=== PATIENT | male | born 1945 | race Caucasian/White ===

== ENCOUNTER 2018-03-24 11:41 | Emergency (ER) | payer MEDICARE, MEDICAID ==
[2018-03-24 11:53] VITALS: BP 114/73
[2018-03-24] MEDS ORDERED: METHYLPREDNISOLONE ACETATE INJ 40 MG/1 ML ML INJ ONE (12:42)
[2018-03-24] MEDS ORDERED: BUPIVACAINE HCL 0.75% INJ/PF (7.5 MG/1 ML) 10 ML SDV INJ ONE (12:42)
[2018-03-24] MEDS ORDERED: HYDROCODONE/ACETAMINOPHEN 5-325 MG TABLET PO ONE (13:01)
--- NOTE | 2018-03-24 13:07 | ER Document Report ---
ED Extremity Problem, Lower - General Chief Complaint: Leg Pain Stated Complaint: LEG PAIN Time Seen by Provider: 03/24/18 12:42 Notes: Chief complaint: Right knee pain History of complain:( obtained from----patient) 72 years old male with history of gout presents today with right knee pain since this morning. And having difficulty in walking. No injuries. No fever chills or other constitutional symptoms. Onset: Gradual Duration: Since this morning Severity: Moderate Quality: Sharp Context: Possible gout Exacerbating factor and relieving factors: Bearing weight 10 walking REVIEW OF SYSTEMS: CONSTITUTIONAL : Denies fever, chills, or sweats. Denies recent illness. EENT: Denies eye, ear, throat, or mouth pain or symptoms. Denies nasal or sinus congestion or discharge. Denies throat, tongue, or mouth swelling or difficulty swallowing. CARDIOVASCULAR: Denies chest pain. Denies palpitations or racing or irregular heart beat. Denies ankle edema. RESPIRATORY: Denies cough, cold, or chest congestion. Denies shortness of breath, difficulty breathing, or wheezing. GASTROINTESTINAL: Denies distention. Denies nausea, vomiting, or diarrhea. Denies blood in vomitus, stools, or per rectum. Denies black, tarry stools. Denies constipation. GENITOURINARY: Denies difficulty urinating, painful urination, burning, frequency, blood in urine, or discharge. FEMALE GENITOURINARY: Denies vaginal bleeding, heavy or abnormal periods, irregular periods. Denies vaginal discharge or odor. MUSCULOSKELETAL: Denies back or neck pain or stiffness. Denies joint pain or swelling. SKIN: Denies rash, lesions or sores. HEMATOLOGIC : Denies easy bruising or bleeding. LYMPHATIC: Denies swollen, enlarged glands. NEUROLOGICAL: Denies confusion or altered mental status. Denies passing out or loss of consciousness. Denies dizziness or lightheadedness. Denies headache. Denies weakness or paralysis or loss of use of either side. Denies problems with gait or speech. Denies sensory loss, numbness, or tingling. Denies seizures. PSYCHIATRIC: Denies anxiety or stress. Denies depression, suicidal ideation, or homicidal ideation. ALL OTHER SYSTEMS REVIEWED AND NEGATIVE. PHYSICAL EXAMINATION: GENERAL: Well-appearing, well-nourished and in no acute distress. HEAD: Atraumatic, normocephalic. EYES: Pupils equal round and reactive to light, extraocular movements intact, conjunctiva are normal. ENT: Nares patent, oropharynx clear without exudates. Moist mucous membranes. NECK: Normal range of motion, supple without lymphadenopathy LUNGS: Breath sounds clear to auscultation bilaterally and equal. No wheezes rales or rhonchi. HEART: Regular rate and rhythm without murmurs ABDOMEN: Soft, nontender, nondistended abdomen. No guarding, no rebound. No masses appreciated. Examination of genitals-deferred Musculoskeletal: Right knee shows slight erythema on the lateral side and is warm and tender to touch over the tibial head,. No knee effusion noted. No fluctuant fluids. Able to flex and extend with discomfort. Neurovascular function distally within normal limit. NEUROLOGICAL: Cranial nerves grossly intact. Normal speech, normal gait. Normal sensory, motor exams PSYCH: Normal mood, normal affect. SKIN: Warm, Dry, normal turgor, no rashes or lesions noted. Dictation was performed using [employer] voice recognition software TRAVEL OUTSIDE OF THE [place] IN LAST 30 DAYS: No - HPI Notes: Dictated - Related Data Allergies/Adverse Reactions: Sulfa (Sulfonamide Antibiotics) Allergy (Verified 11/27/15 08:26) Past Medical History - Social History Smoking Status: Never Smoker Chew tobacco use (# tins/day): No Frequency of alcohol use: None Lives with: Family Family History: Reviewed & Not Pertinent Patient has suicidal ideation: No Patient has homicidal ideation: No - Past Medical History Cardiac Medical History: Reports: Hx Hypertension - medicated Denies: Hx Heart Attack Pulmonary Medical History: Denies: Hx Asthma Neurological Medical History: Reports: Hx Cerebrovascular Accident - ABT . Denies: Hx Seizures Renal/ Medical History: Denies: Hx Peritoneal Dialysis GI Medical History: Denies: Hx Hepatitis, Hx Hiatal Hernia, Hx Ulcer Infectious Medical History: Denies: Hx Hepatitis Past Surgical History: Reports: Hx Appendectomy. Denies: Hx Open Heart Surgery , Hx Pacemaker Review of Systems - Review of Systems Notes: Dictated Physical Exam - Vital signs Vitals: Temp Pulse Resp BP Pulse Ox 98.5 F 105 H 14 114/73 93 03/24/18 11:48 03/24/18 11:48 03/24/18 11:48 03/24/18 11:48 03/24/18 11:48 - Notes Notes: Dictated Course - Vital Signs Vital signs: Temp Pulse Resp BP Pulse Ox 98.5 F 105 H 14 114/73 93 03/24/18 11:48 03/24/18 11:48 03/24/18 11:48 03/24/18 11:48 03/24/18 11:48 Procedures - Joint Aspiration Right Knee Time completed: 13:00 Consent obtained: Yes Joint aspiration pre-procedure: Sterile PPE donned Anesthetic type: 0.5% Bupivacaine mL's of anesthetic: 0 Needle size: 25 Number of attempts: 1 Complications: No Notes: Given 40 mg of Depo-Medrol, 1 cc of bupivacaine into the right lateral knee Discharge - Discharge Clinical Impression: Gout attack Qualifiers: Gout site: knee Gout etiology: idiopathic Laterality: right Qualified Code(s): M10.061 - Idiopathic gout, right knee Condition: Fair Disposition: HOME, SELF-CARE Instructions: Gout Diet ([facility]), Gout ([facility]) Prescriptions: Colchicine [Colchicine 0.6 mg Tablet] 0.6 mg PO DAILY #14 tablet Hydrocodone/Acetaminophen [Hydrocodon-Acetaminophen 5-325] 1 each PO TID #14 tablet Indomethacin [Indocin 50 Mg Capsule] 50 mg PO TID #30 capsule Referrals: ÁNGEL HOFFMAN MD [Primary Care Provider] - Follow up as needed
== END 2018-03-24 13:18 | disposition home or self-care (01) ==
LOC: ER 11:41
PROC: 0MJY3ZZ Inspection of Lower Bursa and Ligament, Percutaneous Approach (ICD-10-PCS; principal; 2018-03-24)
DX: M10.061 Idiopathic gout, right knee (principal)
CPT/HCPCS: 99283; 96372; 20610; J3490; J1020

== ENCOUNTER 2018-06-28 10:44 | Observation (INO) | payer MEDICARE, MEDICAID ==
[2018-06-28 11:16] LABS: ABSOLUTE BASOPHILS # (AUTO) 0.1 10^3/uL (0.0-0.2); ABSOLUTE EOSINOPHILS # (AUTO) 0.2 10^3/uL (0.0-0.6); ABSOLUTE LYMPHOCYTES (AUTO) 0.8 10^3/uL (0.5-4.7); ABSOLUTE NEUT (AUTO) 11.9 10^3/uL (1.7-8.2); BASOPHILS % (AUTO) 0.4 % (0-2); EOSINOPHILS % (AUTO) 1.4 % (0-6); HEMATOCRIT 51.2 % (37.9-51.0); HEMOGLOBIN 17.2 g/dL (13.5-17.0); MEAN CORPUSCULAR HEMOGLOBIN 30.8 pg (27.0-33.4); MEAN CORPUSCULAR HGB CONC 33.6 g/dL (32.0-36.0); MEAN CORPUSCULAR VOLUME 92 fl (80-97); MONOCYTES % (AUTO) 7.4 % (3-13); PLATELET COUNT 290 10^3/uL (150-450); RED BLOOD COUNT 5.57 10^6/uL (4.35-5.55); RED CELL DISTRIBUTION WIDTH 14.6 % (11.5-14.0); SEGMENTED NEUTROPHILS % (AUTO) 84.8 % (42-78); TOTAL CELLS COUNTED % (AUTO) 100 %
[2018-06-28 11:23] LABS: ALANINE AMINOTRANSFERASE 35 U/L (21-72); ALBUMIN 5.1 g/dL (3.5-5.0); ALKALINE PHOSPHATASE 92 U/L (38-126); ANION GAP 14 (5-19); ASPARTATE AMINO TRANSFERASE 30 U/L (17-59); BILIRUBIN,DIRECT 0.5 mg/dL (0.0-0.4); BILIRUBIN,TOTAL 0.9 mg/dL (0.2-1.3); BLOOD UREA NITROGEN 31 mg/dL (7-20); CALCIUM 9.9 mg/dL (8.4-10.2); CARBON DIOXIDE 28 mmol/L (22-30); CHLORIDE 98 mmol/L (98-107); GLUCOSE 137 mg/dL (75-110); POTASSIUM 4.4 mmol/L (3.6-5.0); SODIUM 140.1 mmol/L (137-145)
--- NOTE | 2018-06-28 11:26 | ER Document Report ---
ED General - General Chief Complaint: Fall Stated Complaint: DIARRHEA Time Seen by Provider: 06/28/18 10:58 TRAVEL OUTSIDE OF THE [place] IN LAST 30 DAYS: No - HPI Notes: Patient is a 72-year-old male with a history of hypertension and GERD who presents to the ED by EMS for fall, abdominal pain, nausea/vomiting/diarrhea. Patient states that he was feeling well this morning when he woke up but then started having abdominal cramping. Patient states that he had one episode of vomiting and diarrhea. Patient states he did not visualize his stool, and when he went to stand up he became dizzy and fell forward hitting the right side of his face. Patient states he also has an abrasion to his knee, but is able to ambulate without difficulty. Patient states that since then his abdominal pain and dizziness have resolved. Patient states that the right side of the orbit is sore from where he hit his head. Patient states that he had difficulty standing up thereafter is he felt weak. He has no other concerns or complaints. Patient states that he did not lose consciousness. Denies any headache, fever, neck pain, changes in vision/speech/mentation/hearing, URI, sore throat, chest pain, palpitations, syncope, cough, shortness of breath, wheeze, dyspnea, urinary retention, dysuria, hematuria, loss of control of bowel or bladder, numbness/tingling, saddle anesthesia, muscle paralysis, or rash. - Related Data Allergies/Adverse Reactions: Sulfa (Sulfonamide Antibiotics) Allergy (Verified 11/27/15 08:26) Past Medical History - Social History Smoking Status: Never Smoker Family History: Reviewed & Not Pertinent - Past Medical History Cardiac Medical History: Reports: Hx Hypertension - medicated Denies: Hx Heart Attack Pulmonary Medical History: Denies: Hx Asthma Neurological Medical History: Reports: Hx Cerebrovascular Accident - ABT . Denies: Hx Seizures Renal/ Medical History: Denies: Hx Peritoneal Dialysis GI Medical History: Denies: Hx Hepatitis, Hx Hiatal Hernia, Hx Ulcer Infectious Medical History: Denies: Hx Hepatitis Past Surgical History: Reports: Hx Appendectomy. Denies: Hx Open Heart Surgery, Hx Pacemaker Review of Systems - Review of Systems -: Yes All other systems reviewed and negative Physical Exam - Vital signs Vitals: Temp 98.2 F 06/28/18 10:45 - Notes Notes: PHYSICAL EXAMINATION: accompanied by nurse GENERAL: Well-appearing, well-nourished and in no acute distress. A&Ox4. Answers questions appropriately. HEAD: Atraumatic, normocephalic. Non-tender. No medina sign EYES: Pupils equal round and reactive to light, extraocular movements intact, sclera anicteric, conjunctiva are normal. No raccoon eyes/entrapment. + small abrasion to the rt laterosuperior orbit w/o active bleeding or laceration. ENT: EAC clear b/l. TM's intact b/l without erythema, fluid, or perforation. Nares patent and without discharge. oropharynx clear without exudates. No tonsilar hypertrophy or erythema. Moist mucous membranes. No sinus tenderness. No hemotympanum/CSF discharge. NECK: Normal range of motion, supple without lymphadenopathy. No rigidity. No midline tenderness. NEXUS negative. Chest: No flail chest. equal rise/fall. Non-tender LUNGS: Breath sounds clear to auscultation bilaterally and equal. No wheezes rales or rhonchi. HEART: Regular rate and rhythm without murmurs, rubs, gallops. ABDOMEN: Soft, nontender, nondistended abdomen. No guarding, no rebound. No masses appreciated. Normal bowel sounds present. No CVA tenderness bilaterally. Rectal: Light brown stool with black flecks of melena noted that tested + for occult blood. Non-tender. Musculoskeletal: Ext's b/l: FROM to passive/active. Strength 5+/5. No deficits noted. No bony tenderness of extremities. + small abrasion right anterior knee w/o any bony tenderness. N/v intact distal. Back: FROM to passive/active. Strength 5+/5. No vertebral point tenderness, stepoffs, or deformities. No other bony tenderness or ecchymosis. Extremities: No cyanosis, clubbing, or edema b/l. Peripheral pulses 2+. Capillary refill less than 2 seconds. NEUROLOGICAL: NIH 0. GCS 15. Cranial nerves grossly intact. Normal speech, normal gait. Normal sensory, motor exams. Reflexes 2+ b/l. SONIA's negative. Pronator drift negative. Heel/flores, finger/nose wnl. PSYCH: Normal mood, normal affect. SKIN: see above. Course - Re-evaluation Re-evalutation: 06/28/18 11:26 Patient is a 72-year-old male with a Hemoccult positive stool in the setting of nausea, vomiting, abdominal pain, dizziness, and a fall. At this time, patient is tachycardic at 112 but is otherwise asymptomatic. Patient's abdomen is soft and nontender. Orthostatics, labs, fluids, imaging, EKG, and a type and screen have been ordered. I will tentatively start him on a Protonix bolus as well as drip. 06/28/18 15:39 Patient has had multiple re-evaluations up until present time. Patient has had a few episodes of emesis throughout his stay and one episode of loose stool despite Zofran and Reglan. He is receiving his third liter of fluid. Patient has remained mildly tachycardic throughout his stay as well. Patient states that he does not have any pain until becomes nauseous again and then is resolved with either vomiting or having diarrhea. I have been reviewing this case with Dr. Segura who thinks that if the patient is feeling well and is walking around w/o any worsening symptoms that he can go home. After reviewing this with him, the pt had another episode of emesis. 06/28/18 16:48 I did call and speak with Dr. Mora who accepted patient for admit to the [facility]. Patient is in agreement with this plan. - Vital Signs Vital signs: Temp Pulse Resp BP Pulse Ox 98.2 F 20 134/82 H 96 06/28/18 10:45 06/28/18 16:01 06/28/18 16:01 06/28/18 16:01 - Laboratory Result Diagrams: 06/28/18 10:10 06/28/18 10:10 Laboratory results interpreted by me: 06/28/18 06/28/18 10:10 10:10 WBC 14.0 H RBC 5.57 H Hgb 17.2 H Hct 51.2 H RDW 14.6 H Seg Neutrophils % 84.8 H Lymphocytes % 6.0 L Absolute Neutrophils 11.9 H BUN 31 H Creatinine 1.82 H Est GFR ( Amer) 45 L Est GFR (Non-Af Amer) 37 L Glucose 137 H Direct Bilirubin 0.5 H Albumin 5.1 H Discharge - Discharge Clinical Impression: Dehydration, Acute gastroenteritis Condition: Stable Disposition: ADMITTED INPATIENT Admitting Provider: Hospitalist - Dr. Mora Unit Admitted: IMCU Referrals: ÁNGEL HOFFMAN MD [Primary Care Provider] - Follow up as needed
[2018-06-28] MEDS ORDERED: PANTOPRAZOLE SODIUM 40 MG VIAL IV ONE (11:27)
[2018-06-28 11:40] LABS: INTERNATIONAL RATION (INR) 0.93; PROTHROMBIN TIME 12.9 SEC (11.4-15.4)
[2018-06-28 11:41] LABS: PARTIAL THROMBOPLASTIN TIME 26.9 SEC (23.5-35.8)
--- NOTE | 2018-06-28 11:47 | RADIOLOGY REPORT (SQ) ---
EXAM DESCRIPTION: CHEST SINGLE VIEW COMPLETED DATE/TIME: 06/28/2018 11:38 am REASON FOR STUDY: dizziness COMPARISON: AP chest 02/08/2011 EXAM PARAMETERS: NUMBER OF VIEWS: One view. TECHNIQUE: Single frontal radiographic view of the chest acquired. RADIATION DOSE: NA LIMITATIONS: None. FINDINGS: LUNGS AND PLEURA: No opacities, masses or pneumothorax. No pleural effusion. MEDIASTINUM AND HILAR STRUCTURES: No masses. Contour normal. HEART AND VASCULAR STRUCTURES: Heart normal in size. Normal vasculature. BONES: No acute findings. HARDWARE: None in the chest. OTHER: No other significant finding. IMPRESSION: NO ACUTE RADIOGRAPHIC FINDING IN THE CHEST. TECHNICAL DOCUMENTATION: JOB ID: [id number] [employer]- All Rights Reserved Reading location - IP/workstation name: [email or web address]
--- NOTE | 2018-06-28 11:52 | RADIOLOGY REPORT (SQ) ---
EXAM DESCRIPTION: CT FACIAL AREA WITHOUT COMPLETED DATE/TIME: 06/28/2018 11:38 am REASON FOR STUDY: fall, rt orbit abrasion/pain COMPARISON: CT brain same date TECHNIQUE: Noncontrasted images through the facial bones and orbits windowed for bone and soft tissu e. Additional coronal and sagittal reconstructed images reviewed. All images stored on PACS. All CT scanners at this facility use dose modulation, iterative reconstruction, and/or weight based d osing when appropriate to reduce radiation dose to as low as reasonably achievable (ALARA). [facility]: Dose Right [facility]: CareDose [facility]: Dose Right [facility]: Teradose 4D [facility]: [employer] RADIATION DOSE: CT Rad equipment meets quality standard of care and radiation dose reduction techniq ues were employed. CTDIvol: 30.4 mGy. DLP: 540 mGy-cm. mGy. LIMITATIONS: None. FINDINGS: FACIAL BONES: No fracture or bone lesion. ORBITS: Intact. No fracture. Symmetric intact globes and retroorbital soft tissues. Post cataract surgery bilaterally PARANASAL SINUSES: Maxillary sinus mucous membrane thickening along the floor of the right and left s inus. No nasal polyps. Maxillary sinus outlets are patent. SOFT TISSUES: No mass or edema. INFERIOR BRAIN: Limited view. No acute findings. Few Pantopaque droplets are seen in the suprasella r cistern from remote prior Pantopaque myelogram OTHER: No other significant finding. IMPRESSION: NO ACUTE FINDINGS. TECHNICAL DOCUMENTATION: JOB ID: [id number] Quality ID # [id number]: Final reports with documentation of one or more dose reduction techniques (e.g., Au tomated exposure control, adjustment of the mA and/or kV according to patient size, use of iterative reconstruction technique) 2010 [employer]- All Rights Reserved Reading location - IP/workstation name: [email or web address]
--- NOTE | 2018-06-28 11:53 | RADIOLOGY REPORT (SQ) ---
EXAM DESCRIPTION: CT HEAD WITHOUT COMPLETED DATE/TIME: 06/28/2018 11:38 am REASON FOR STUDY: fall , right eye pain and bruising COMPARISON: CT brain 02/08/2011 CT facial bones same date TECHNIQUE: Axial images acquired through the brain without intravenous contrast. Images reviewed wi th bone, brain and subdural windows. Additional sagittal and coronal reconstructions were generated. Images stored on PACS. All CT scanners at this facility use dose modulation, iterative reconstruction, and/or weight based d osing when appropriate to reduce radiation dose to as low as reasonably achievable (ALARA). [facility]: Dose Right [facility]: CareDose [facility]: Dose Right [facility]: Teradose 4D [facility]: [employer] RADIATION DOSE: CT Rad equipment meets quality standard of care and radiation dose reduction techniq ues were employed. CTDIvol: 53.2 mGy. DLP: 991 mGy-cm. mGy. LIMITATIONS: None. FINDINGS: VENTRICLES: Normal size and contour. CEREBRUM: No masses. No hemorrhage. No midline shift. No evidence for acute infarction. Normal gra y/white matter differentiation. No areas of low density in the white matter. CEREBELLUM: No masses. No hemorrhage. No alteration of density. No evidence for acute infarction. EXTRAAXIAL SPACES: No fluid collections. No masses. ORBITS AND GLOBE: No intra- or extraconal masses. Normal contour of globe without masses. CALVARIUM: No fracture. PARANASAL SINUSES: No fluid or mucosal thickening. SOFT TISSUES: No mass or hematoma. OTHER: Old Pantopaque droplets in the suprasellar cistern from remote prior myelogram IMPRESSION: NORMAL BRAIN CT WITHOUT CONTRAST. EVIDENCE OF ACUTE STROKE: NO. COMMENT: Quality ID # [id number]: Final reports with documentation of one or more dose reduction techniques (e.g., Automated exposure control, adjustment of the mA and/or kV according to patient size, use of iterative reconstruction technique) TECHNICAL DOCUMENTATION: JOB ID: [id number] [employer]- All Rights Reserved Reading location - IP/workstation name: [email or web address]
[2018-06-28] MEDS: NORMAL SALINE 1000 ML 1,000 ML IV PRN ×2 (12:29→15:01)
--- NOTE | 2018-06-28 13:34 | EKG REPORT ---
SEVERITY:- ABNORMAL ECG - SINUS TACHYCARDIA FIRST DEGREE AV BLOCK RIGHT ATRIAL ABNORMALITY LAD, CONSIDER LEFT ANTERIOR FASCICULAR BLOCK : Confirmed by: Lizabeth Hermosillo 28-Jun-2018 13:34:22
[2018-06-28] MEDS: PANTOPRAZOLE SODIUM 40 MG VIAL IV PRN (13:59)
[2018-06-28 14:08] LABS: APPEARANCE,URINE CLEAR; BILIRUBIN,URINE NEGATIVE (NEGATIVE); COLOR,URINE YELLOW; GLUCOSE, URINE NEGATIVE (NEGATIVE); KETONES,URINE NEGATIVE (NEGATIVE); LEUKOCYTE ESTERASE,URINE NEGATIVE (NEGATIVE); NITRITE,URINE NEGATIVE (NEGATIVE); PROTEIN,URINE NEGATIVE (NEGATIVE); URINE SPECIFIC GRAVITY 1.015; UROBILINOGEN,URINE NEGATIVE mg/dL (<2.0)
[2018-06-28] MEDS ORDERED: METOCLOPRAMIDE HCL INJ/PF 10 MG/2 ML SDV IV ONE (14:41)
[2018-06-28] MEDS ORDERED: NORMAL SALINE 1000 ML 1,000 ML IV ONE (15:07)
[2018-06-28] MEDS ORDERED: PROMETHAZINE HCL INJ 25 MG/1 ML VIAL IM ONE (15:39)
[2018-06-28] MEDS ORDERED: ONDANSETRON 4 MG TAB.RAPDIS PO PRN (17:55)
[2018-06-28] MEDS ORDERED: NORMAL SALINE 1000 ML 1,000 ML IV PRN (17:55)
[2018-06-28] MEDS ORDERED: ACETAMINOPHEN 325 MG TABLET PO PRN (17:55)
--- NOTE | 2018-06-28 17:55 | PDOC H&P ---
History of Present Illness Admission Date/PCP: 06/28/18 17:18 ÁNGEL HOFFMAN MD Patient complains of: Earlier today the patient had diarrhea with nausea and vomiting. He went to stand at home fell and hit his head. History of Present Illness: HALLE BROWN is a 72 year old male who has a history of gout, hiatal hernia with reflux and hypertension. He was feeling sick earlier. He had nausea, vomiting and diarrhea. When he went to stand he became lightheaded. He fell and hit his head. He does not believe that he passed out at all. Upon arrival to the [facility] department he was found to be tachycardic. Despite several boluses of fluid tachycardia persisted. He also had fecal occult blood positive testing with brown stool and small flecks. He will be admitted. We will monitor on telemetry. We will continue IV fluids as well. Past Medical History Cardiac Medical History: Reports: Hyperlipidema, Hypertension - medicated Denies: Myocardial Infarction Pulmonary Medical History: Denies: Asthma Neurological Medical History: Denies: Seizures Endocrine Medical History: Reports: Diabetes Mellitus Type 2 GI Medical History: Denies: Hepatitis, Hiatal Hernia Hematology: Denies: Anemia, Sickle Cell Disease Past Surgical History Past Surgical History: Reports: Appendectomy, Other - Cataracts Denies: Pacemaker Social History Information Source: Patient Lives with: Family Smoking Status: Never Smoker Frequency of Alcohol Use: None Hx Recreational Drug Use: No Hx Prescription Drug Abuse: No - Advance Directive Resuscitation Status: Full Code Surrogate healthcare decision maker:: The patient states that his nephew Len Brown takes care of his financial's. He indicated that he might be the decision maker. The patient has 2 brothers as well. To the best of the patient's knowledge she has no written documentation of healthcare proxy. Family History Family History: CAD, DM, Other - Renal failure Parental Family History Reviewed: Yes Children Family History Reviewed: NA - No children Sibling(s) Family History Reviewed.: Yes Medication/Allergy Home Medications: Furosemide [Lasix 20 mg Tablet] 20 mg PO QAM 11/21/15 Losartan Potassium 50 mg PO DAILY 11/21/15 Colchicine [Colchicine 0.6 mg Tablet] 0.6 mg PO DAILY #14 tablet 03/24/18 Hydrocodone/Acetaminophen [Hydrocodon-Acetaminophen 5-325] 1 each PO TID #14 tablet 03/24/18 Indomethacin [Indocin 50 Mg Capsule] 50 mg PO TID #30 capsule 03/24/18 Allergies/Adverse Reactions: Sulfa (Sulfonamide Antibiotics) Allergy (Verified 11/27/15 08:26) Review of Systems Constitutional: PRESENT: as per HPI. ABSENT: chills, fatigue, headache(s), weight gain, weight loss Eyes: PRESENT: visual disturbances - Cataract surgery last Ears: ABSENT: hearing changes Nose, Mouth, and Throat: PRESENT: other - Very poor dentition. Speech impediment.. ABSENT: mouth pain, sore throat Cardiovascular: PRESENT: edema. ABSENT: chest pain, dyspnea on exertion, palpitations Respiratory: ABSENT: cough, hemoptysis Gastrointestinal: PRESENT: diarrhea, nausea, vomiting, other - Brown stool Hemoccult positive. ABSENT: bloating Genitourinary: ABSENT: difficulty urinating, dysuria, hematuria Integumentary: ABSENT: lesions, pruritus Neurological: PRESENT: abnormal speech Hematologic/Lymphatic: ABSENT: easy bleeding, easy bruising Allergic/Immunologic: ABSENT: seasonal rhinorrhea Physical Exam Vital Signs: Temp Pulse Resp BP Pulse Ox 98.2 F 20 134/82 H 96 06/28/18 10:45 06/28/18 16:01 06/28/18 16:01 06/28/18 16:01 Intake & Output 06/27/18 06/28/18 06/29/18 06:59 06:59 06:59 Intake Total 1000 Balance 1000 Weight 93.3 kg General appearance: PRESENT: no acute distress, cooperative, well-developed Head exam: PRESENT: normocephalic, other - Laceration and contusion over the right eyebrow Eye exam: PRESENT: conjunctival injection, conjunctiva pink, EOMI. ABSENT: scleral icterus Ear exam: PRESENT: normal external ear exam Mouth exam: PRESENT: moist, tongue midline Teeth exam: PRESENT: poor dentation Neck exam: ABSENT: carotid bruit, JVD, lymphadenopathy Respiratory exam: PRESENT: clear to auscultation aneesh, symmetrical, unlabored. ABSENT: rales, rhonchi, stridor, wheezes Cardiovascular exam: PRESENT: +S1, +S2, tachycardia Pulses: PRESENT: normal radial pulses, normal dorsalis pedis pul GI/Abdominal exam: PRESENT: normal bowel sounds, soft, tenderness - Patient reports some mild diffuse tenderness Rectal exam: PRESENT: other - Per emergency department physician stool is brown with small flecks of dark material. Hemoccult positive. Extremities exam: PRESENT: pedal edema. ABSENT: calf tenderness Neurological exam: PRESENT: alert, awake, oriented to person, oriented to place, oriented to time, oriented to situation Psychiatric exam: PRESENT: appropriate affect, normal mood. ABSENT: agitated, anxious Skin exam: PRESENT: abrasion - Right knee, other - Chronic pigment deposition lower legs Results Laboratory Results: 06/28/18 10:10 06/28/18 10:10 06/28/18 06/28/18 06/28/18 10:10 10:10 11:41 WBC 14.0 H RBC 5.57 H Hgb 17.2 H Hct 51.2 H MCV 92 MCH 30.8 MCHC 33.6 RDW 14.6 H Plt Count 290 Seg Neutrophils % 84.8 H Lymphocytes % 6.0 L Monocytes % 7.4 Eosinophils % 1.4 Basophils % 0.4 Absolute Neutrophils 11.9 H Absolute Lymphocytes 0.8 Absolute Monocytes 1.0 Absolute Eosinophils 0.2 Absolute Basophils 0.1 Sodium 140.1 Potassium 4.4 Chloride 98 Carbon Dioxide 28 Anion Gap 14 BUN 31 H Creatinine 1.82 H Est GFR ( Amer) 45 L Est GFR (Non-Af Amer) 37 L Glucose 137 H Calcium 9.9 Total Bilirubin 0.9 AST 30 ALT 35 Alkaline Phosphatase 92 Total Protein 8.0 Albumin 5.1 H Urine Color Urine Appearance Urine pH Ur Specific [place] Urine Protein Urine Glucose (UA) Urine Ketones Urine Blood Urine Nitrite Ur Leukocyte Esterase Urine WBC (Auto) Urine RBC (Auto) Blood Type O NEGATIVE Antibody Screen NEGATIVE 06/28/18 13:55 WBC RBC Hgb Hct MCV MCH MCHC RDW Plt Count Seg Neutrophils % Lymphocytes % Monocytes % Eosinophils % Basophils % Absolute Neutrophils Absolute Lymphocytes Absolute Monocytes Absolute Eosinophils Absolute Basophils Sodium Potassium Chloride Carbon Dioxide Anion Gap BUN Creatinine Est GFR ( Amer) Est GFR (Non-Af Amer) Glucose Calcium Total Bilirubin AST ALT Alkaline Phosphatase Total Protein Albumin Urine Color YELLOW Urine Appearance CLEAR Urine pH 5.0 Ur Specific [place] 1.015 Urine Protein NEGATIVE Urine Glucose (UA) NEGATIVE Urine Ketones NEGATIVE Urine Blood NEGATIVE Urine Nitrite NEGATIVE Ur Leukocyte Esterase NEGATIVE Urine WBC (Auto) 1 Urine RBC (Auto) 0 Blood Type Antibody Screen 06/28/18 06/28/18 10:10 14:58 Troponin I < 0.012 < 0.012 Impressions: Facial Bones CT 06/28/18 11:17 IMPRESSION: NO ACUTE FINDINGS. Head CT 06/28/18 11:17 IMPRESSION: NORMAL BRAIN CT WITHOUT CONTRAST. EVIDENCE OF ACUTE STROKE: NO. Chest X-Ray 06/28/18 11:19 IMPRESSION: NO ACUTE RADIOGRAPHIC FINDING IN THE CHEST. Assessment & Plan - Diagnosis (1) Acute gastroenteritis Is this a current diagnosis for this admission?: Yes Plan: We will provide IV fluids and monitor the patient. He will have medications for nausea. It appears that despite possible underlying chronic renal insufficiency he is somewhat dehydrated. (2) Dehydration Is this a current diagnosis for this admission?: Yes Plan: BUN and creatinine are elevated from recent laboratory studies. Aggressive IV fluids at this time. (3) Occult blood positive stool Is this a current diagnosis for this admission?: Yes Plan: Hemoglobin is normal. We will continue to monitor. Possibly as a result of gastritis. (4) Contusion of right eyebrow Qualifiers: Encounter type: initial encounter Qualified Code(s): S00.11XA - Contusion of right eyelid and periocular area, initial encounter Is this a current diagnosis for this admission?: Yes Plan: Small contusion over the right eye. At this point it does not appear to require any dressings. No change in vision. - Time Time Spent: 50 to 70 Minutes Medications reviewed and adjusted accordingly: Yes Anticipated discharge: Home
[2018-06-29] MEDS ORDERED: PANTOPRAZOLE SODIUM 40 MG VIAL IV ONE ×2 (00:58)
[2018-06-29] MEDS: PANTOPRAZOLE SODIUM 40 MG VIAL IV PRN (01:18)
[2018-06-29] MEDS ORDERED: LANSOPRAZOLE 30 MG TAB.RAP.DR PO SCH (06:00)
[2018-06-29 06:56] LABS: HEMATOCRIT 41.8 % (37.9-51.0); MEAN CORPUSCULAR HEMOGLOBIN 31.1 pg (27.0-33.4); MEAN CORPUSCULAR HGB CONC 33.9 g/dL (32.0-36.0); MEAN CORPUSCULAR VOLUME 92 fl (80-97); PLATELET COUNT 188 10^3/uL (150-450); RED BLOOD COUNT 4.55 10^6/uL (4.35-5.55); RED CELL DISTRIBUTION WIDTH 14.5 % (11.5-14.0); WHITE BLOOD COUNT 4.8 10^3/uL (4.0-10.5)
[2018-06-29 07:14] LABS: ANION GAP 7 (5-19); BLOOD UREA NITROGEN 21 mg/dL (7-20); CALCIUM 8.6 mg/dL (8.4-10.2); CARBON DIOXIDE 24 mmol/L (22-30); CHLORIDE 109 mmol/L (98-107); GLUCOSE 111 mg/dL (75-110); POTASSIUM 4.4 mmol/L (3.6-5.0); SODIUM 140.4 mmol/L (137-145)
[2018-06-29 07:38] LABS: HEMOGLOBIN 14.2 g/dL (13.5-17.0)
[2018-06-29 07:52] LABS: ABSOLUTE LYMPHOCYTES# (MANUAL) 0.7 10^3/uL (0.5-4.7); ABSOLUTE MONOCYTES # (MANUAL) 0.5 10^3/uL (0.1-1.4); ABSOLUTE NEUTROPHILS# (MANUAL) 3.6 10^3/uL (1.7-8.2); BAND NEUTROPHILS % (MANUAL) 1 % (3-5); BASOPHILS % (MANUAL) 0 % (0-2); EOSINOPHILS % (MANUAL) 1 % (0-6); LYMPHOCYTES % (MANUAL) 14 % (13-45); MONOCYTES % (MANUAL) 10 % (3-13); SEGMENTED NEUTROPHILS % (MAN) 73 % (42-78); TOTAL CELLS COUNTED 100
[2018-06-29 07:53] LABS: PLATELET COMMENT ADEQUATE; POLYCHROMASIA SLIGHT; TOXIC GRANULATION 1+
[2018-06-29] MEDS ORDERED: LOSARTAN POTASSIUM 50 MG TABLET PO SCH ×2 (10:00)
[2018-06-29] MEDS ORDERED: HYDROCHLOROTHIAZIDE 25 MG TABLET PO SCH ×2 (10:00)
[2018-06-29] MEDS ORDERED: ALLOPURINOL 100 MG TABLET PO SCH (10:00)
--- NOTE | 2018-06-29 11:19 | PDOC DISCHARGE SUMMARY ---
General - Admit/Disc Date/PCP Admission Date/Primary Care Provider: 06/28/18 17:18 ÁNGEL HOFFMAN MD Discharge Date: 06/29/18 - Discharge Diagnosis (1) Acute gastroenteritis Is this a current diagnosis for this admission?: Yes Summary: The patient has a history of hiatal hernia. He had acute gastritis with dark flecks in his stool that were Hemoccult positive. This could be from gastritis with trace of blood oozing. I have asked that he switch to Protonix 40 mg daily instead of the Pepcid. (2) Dehydration Is this a current diagnosis for this admission?: Yes Summary: The patient received aggressive hydration. His blood pressure has been stable. His BUN and creatinine appear to be back to his slightly elevated baseline. He did have a prescription for furosemide listed on his home medications. He did not have a bottle for that prescription with him when he presented to the hospital. I did suggest that he hold his losartan with hydrochlorothiazide until he sees his primary care provider. (3) Occult blood positive stool Is this a current diagnosis for this admission?: Yes Summary: There was no visible blood. With his vomiting it is possible it was from gastritis or irritation. His hemoglobin was towards the upper range of normal. Continue the Protonix for gastritis and follow-up with primary care. (4) Contusion of right eyebrow Is this a current diagnosis for this admission?: Yes Summary: Small wound. Conservative care. No evidence of altered mental status. - Additional Information Resuscitation Status: Full Code Discharge Diet: Cardiac Discharge Activity: Activity As Tolerated Prescriptions: Pantoprazole Sodium [Protonix] 40 mg PO DAILY 30 Days #30 tablet. Home Medications: Allopurinol [Zyloprim 100 mg Tablet] 200 mg PO DAILY 06/28/18 Pantoprazole Sodium [Protonix] 40 mg PO DAILY 30 Days #30 tablet. 06/29/18 History of Present Illness Patient complains of: Lightheadedness, nausea and vomiting with fall History of Present Illness: Please also see history and physical This is present 72-year-old gentleman who was feeling poorly. He had nausea and vomiting. When he went to stand he became dizzy and fell and hit his head. He does not report losing consciousness. Hospital Course Hospital Course: The patient was aggressively hydrated. His blood pressure medicine was held. He had very quiet night. His blood pressure and pulse are better today. He will be discharged home and should follow-up with his primary care provider EDIN Asif. Because of his low blood pressure of asked patient to hold his losartan with hydrochlorothiazide until he sees his primary care provider. I do not believe his blood pressure will rise to a dangerous level if he holds it over the course of several days. He feels much better and is comfortable going home. Physical Exam Vital Signs: Temp Pulse Resp BP Pulse Ox 97.4 F 105 H 20 116/65 94 06/29/18 08:00 06/29/18 08:00 06/29/18 08:00 06/29/18 08:00 06/29/18 08:00 Intake & Output 06/28/18 06/29/18 06/30/18 06:59 06:59 06:59 Intake Total 4000 Output Total 400 Balance 3600 Weight 93.1 kg General appearance: PRESENT: no acute distress, cooperative, well-developed Head exam: ABSENT: atraumatic - Small contusion right lateral supraorbital ridge. No erythema. Small scab remains. Mouth exam: PRESENT: moist Teeth exam: PRESENT: poor dentation Respiratory exam: PRESENT: clear to auscultation aneesh, symmetrical, unlabored. ABSENT: rales, rhonchi, wheezes Cardiovascular exam: PRESENT: RRR, +S1, +S2 GI/Abdominal exam: PRESENT: normal bowel sounds, soft. ABSENT: tenderness Musculoskeletal exam: PRESENT: ambulatory Neurological exam: PRESENT: alert, awake, oriented to person, oriented to place, oriented to situation, CN II-XII grossly intact Psychiatric exam: PRESENT: appropriate affect, normal mood Skin exam: PRESENT: abrasion - Right eyebrow. Small abrasion right knee as well. Results Laboratory Results: 06/29/18 06:18 06/29/18 06:18 06/28/18 06/28/18 06/28/18 10:10 10:10 11:41 WBC 14.0 H RBC 5.57 H Hgb 17.2 H Hct 51.2 H MCV 92 MCH 30.8 MCHC 33.6 RDW 14.6 H Plt Count 290 Seg Neutrophils % 84.8 H Lymphocytes % 6.0 L Monocytes % 7.4 Eosinophils % 1.4 Basophils % 0.4 Absolute Neutrophils 11.9 H Absolute Lymphocytes 0.8 Absolute Monocytes 1.0 Absolute Eosinophils 0.2 Absolute Basophils 0.1 Sodium 140.1 Potassium 4.4 Chloride 98 Carbon Dioxide 28 Anion Gap 14 BUN 31 H Creatinine 1.82 H Est GFR ( Amer) 45 L Est GFR (Non-Af Amer) 37 L Glucose 137 H Uric Acid Calcium 9.9 Total Bilirubin 0.9 AST 30 ALT 35 Alkaline Phosphatase 92 Total Protein 8.0 Albumin 5.1 H Urine Color Urine Appearance Urine pH Ur Specific [place] Urine Protein Urine Glucose (UA) Urine Ketones Urine Blood Urine Nitrite Ur Leukocyte Esterase Urine WBC (Auto) Urine RBC (Auto) Blood Type O NEGATIVE Antibody Screen NEGATIVE 06/28/18 06/29/18 06/29/18 13:55 06:18 06:18 WBC 4.8 RBC 4.55 Hgb 14.2 D Hct 41.8 MCV 92 MCH 31.1 MCHC 33.9 RDW 14.5 H Plt Count 188 Seg Neutrophils % Not Reportable Lymphocytes % Not Reportable Monocytes % Not Reportable Eosinophils % Not Reportable Basophils % Not Reportable Absolute Neutrophils Not Reportable Absolute Lymphocytes Not Reportable Absolute Monocytes Not Reportable Absolute Eosinophils Not Reportable Absolute Basophils Not Reportable Sodium 140.4 Potassium 4.4 Chloride 109 H Carbon Dioxide 24 Anion Gap 7 BUN 21 H Creatinine 1.36 H Est GFR ( Amer) > 60 Est GFR (Non-Af Amer) 52 L Glucose 111 H Uric Acid 7.0 Calcium 8.6 Total Bilirubin AST ALT Alkaline Phosphatase Total Protein Albumin Urine Color YELLOW Urine Appearance CLEAR Urine pH 5.0 Ur Specific [place] 1.015 Urine Protein NEGATIVE Urine Glucose (UA) NEGATIVE Urine Ketones NEGATIVE Urine Blood NEGATIVE Urine Nitrite NEGATIVE Ur Leukocyte Esterase NEGATIVE Urine WBC (Auto) 1 Urine RBC (Auto) 0 Blood Type Antibody Screen 06/28/18 06/28/18 10:10 14:58 Troponin I < 0.012 < 0.012 Impressions: Facial Bones CT 06/28/18 11:17 IMPRESSION: NO ACUTE FINDINGS. Head CT 06/28/18 11:17 IMPRESSION: NORMAL BRAIN CT WITHOUT CONTRAST. EVIDENCE OF ACUTE STROKE: NO. Chest X-Ray 06/28/18 11:19 IMPRESSION: NO ACUTE RADIOGRAPHIC FINDING IN THE CHEST. Qualifiers - * PATIENT BEING DISCHARGED WITH ANY OF THE FOLLOWING DIAGNOSIS: No Plan Discharge Plan: As above Time Spent: Greater than 30 Minutes
[2018-06-29 11:32] VITALS: BP 102/58
== END 2018-06-29 11:58 | disposition home or self-care (01) ==
LOC: ER 10:44 → INTOOBSV 17:18 → EH 17:18 → 3S 21:05
PROVIDERS: ADMIT Hospitalist; ATTEND Hospitalist
DX: K52.9 Noninfective gastroenteritis and colitis, unspecified (principal); E86.0 Dehydration; R19.5 Other fecal abnormalities; S00.11XA Contusion of right eyelid and periocular area, initial encounter; I95.9 Hypotension, unspecified; R42 Dizziness and giddiness; S80.211A Abrasion, right knee, initial encounter; R00.0 Tachycardia, unspecified; R47.9 Unspecified speech disturbances; S00.211A Abrasion of right eyelid and periocular area, initial encounter; W19.XXXA Unspecified fall, initial encounter; I10 Essential (primary) hypertension; Z90.49 Acquired absence of other specified parts of digestive tract; Z84.1 Family history of disorders of kidney and ureter; Z83.3 Family history of diabetes mellitus; Z79.899 Other long term (current) drug therapy; Z98.49 Cataract extraction status, unspecified eye; Z86.73 Personal history of transient ischemic attack (TIA), and cerebral infarction without residual deficits
CPT/HCPCS: 93005; 99285; 96372; 96361; 96374; 96375; 86900; 86901; 36415 ×2; 86850; 84550; 85025 ×2; 85610; 85730; 80048; 80053; 81001; 84484; 71045; 70450; 70486; 93010; G0378 ×3; A9270 ×2; J2765; C9113 ×2; J2550; J7030; S0164

== ENCOUNTER 2019-03-25 22:07 | Emergency (ER) | payer MEDICARE, MEDICAID ==
--- NOTE | 2019-03-25 23:02 | ER Document Report ---
ED Medical Screen (RME) - General Chief Complaint: Fall Stated Complaint: FALL,UNCOORDINATED Time Seen by Provider: 03/25/19 22:55 Primary Care Provider: ÁNGEL HOFFMAN MD [Primary Care Provider] - Follow up as needed Mode of Arrival: Medic Notes: This 73-year-old gentleman presents to the emergency department via EMS for reports of falling in the last 2 weeks proximally 3 times. Reports he feels uncoordinated dizzy he denies dizziness or change in LOC. Reports he went to see his primary care provider Dr. Jaylan Rao. He reports he was supposed to order x-rays but he never did so patient came to the emergency department today. Patient reports right hip pain right knee pain at this time. I have greeted and performed a rapid initial assessment of this patient. A comprehensive ED assessment and evaluation of the patient, analysis of test results and completion of the medical decision making process will be conducted by additional ED providers. Dictation of this chart was performed using voice recognition software; therefore, there may be some unintended grammatical errors. TRAVEL OUTSIDE OF THE [place] IN LAST 30 DAYS: No - Related Data Allergies/Adverse Reactions: Sulfa (Sulfonamide Antibiotics) Allergy (Verified 06/28/18 18:42) Past Medical History - Past Medical History Cardiac Medical History: Reports: Hx Hypercholesterolemia, Hx Hypertension - medicated Denies: Hx Heart Attack Pulmonary Medical History: Denies: Hx Asthma Neurological Medical History: Reports: Hx Cerebrovascular Accident - ABT . Denies: Hx Seizures Endocrine Medical History: Reports: Hx Diabetes Mellitus Type 2 Renal/ Medical History: Denies: Hx Peritoneal Dialysis GI Medical History: Denies: Hx Hepatitis, Hx Hiatal Hernia, Hx Ulcer Psychiatric Medical History: Denies: Hx Depression Infectious Medical History: Denies: Hx Hepatitis Past Surgical History: Reports: Hx Appendectomy, Other - Cataracts. Denies: Hx Open Heart Surgery, Hx Pacemaker Physical Exam - Vital signs Vitals: Temp Pulse Resp BP Pulse Ox 99.6 F 104 H 18 115/64 92 03/25/19 22:11 03/25/19 22:11 03/25/19 22:11 03/25/19 22:11 03/25/19 22:11 Course - Vital Signs Vital signs: Temp Pulse Resp BP Pulse Ox 99.6 F 104 H 18 115/64 92 03/25/19 22:11 03/25/19 22:11 03/25/19 22:11 03/25/19 22:11 03/25/19 22:11 Doctor's Discharge - Discharge Referrals: ÁNGEL HOFFMAN MD [Primary Care Provider] - Follow up as needed
--- NOTE | 2019-03-25 23:46 | RADIOLOGY REPORT (SQ) ---
EXAM DESCRIPTION: XR HIP 2 OR MORE VIEWS COMPLETED DATE/TME: 03/25/2019 23:01 CLINICAL HISTORY: 73 years, Male, fall pain COMPARISON: None. NUMBER OF VIEWS: 2 TECHNIQUE: AP pelvis and single view right hip LIMITATIONS: None. FINDINGS: Negative for fracture or dislocation. Mild degenerative change of the hips bilaterally. Post surgical changes right lower quadrant. IMPRESSION: No acute osseous abnormality copyright 2010 [employer]- All Rights Reserved
[2019-03-25 23:47] LABS: ABSOLUTE BASOPHILS # (AUTO) 0.1 10^3/uL (0.0-0.2); ABSOLUTE LYMPHOCYTES (AUTO) 0.7 10^3/uL (0.5-4.7); ABSOLUTE MONOCYTES (AUTO) 0.8 10^3/uL (0.1-1.4); ABSOLUTE NEUT (AUTO) 8.3 10^3/uL (1.7-8.2); BASOPHILS % (AUTO) 0.5 % (0-2); EOSINOPHILS % (AUTO) 0.4 % (0-6); HEMATOCRIT 37.5 % (37.9-51.0); LYMPHOCYTES % (AUTO) 7.2 % (13-45); MEAN CORPUSCULAR HEMOGLOBIN 32.1 pg (27.0-33.4); MEAN CORPUSCULAR HGB CONC 34.7 g/dL (32.0-36.0); MEAN CORPUSCULAR VOLUME 93 fl (80-97); PLATELET COUNT 362 10^3/uL (150-450); RED BLOOD COUNT 4.05 10^6/uL (4.35-5.55); SEGMENTED NEUTROPHILS % (AUTO) 83.9 % (42-78); TOTAL CELLS COUNTED % (AUTO) 100 %; WHITE BLOOD COUNT 9.9 10^3/uL (4.0-10.5)
--- NOTE | 2019-03-25 23:51 | RADIOLOGY REPORT (SQ) ---
EXAM DESCRIPTION: Right knee [employer]: XR KNEE 1-2 VIEWS Views: 2 CLINICAL HISTORY: 73 years Male, fall pain COMPARISON: None. FINDINGS: Alignment is anatomic. No acute fracture or dislocation. There is a small joint effusion. Mild reactive osteophyte at the superior margin of the patella. No lytic bone changes or periosteal reaction. IMPRESSION: 1. No acute fracture or dislocation
[2019-03-26 00:08] LABS: ALBUMIN 3.7 g/dL (3.5-5.0); ALKALINE PHOSPHATASE 152 U/L (38-126); ANION GAP 13 (5-19); ASPARTATE AMINO TRANSFERASE 29 U/L (17-59); BILIRUBIN,DIRECT 0.4 mg/dL (0.0-0.4); BILIRUBIN,TOTAL 0.8 mg/dL (0.2-1.3); BLOOD UREA NITROGEN 43 mg/dL (7-20); CALCIUM 9.2 mg/dL (8.4-10.2); CARBON DIOXIDE 24 mmol/L (22-30); CHLORIDE 93 mmol/L (98-107); GLUCOSE 115 mg/dL (75-110); POTASSIUM 4.8 mmol/L (3.6-5.0); TOTAL PROTEIN 6.3 g/dL (6.3-8.2)
[2019-03-26 00:23] LABS: APPEARANCE,URINE CLEAR; BILIRUBIN,URINE NEGATIVE (NEGATIVE); COLOR,URINE YELLOW; GLUCOSE, URINE NEGATIVE (NEGATIVE); KETONES,URINE TRACE mg/dL (NEGATIVE); LEUKOCYTE ESTERASE,URINE NEGATIVE (NEGATIVE); NITRITE,URINE NEGATIVE (NEGATIVE); PROTEIN,URINE NEGATIVE (NEGATIVE); URINE SPECIFIC GRAVITY 1.012; UROBILINOGEN,URINE NEGATIVE mg/dL (<2.0)
--- NOTE | 2019-03-26 03:28 | ER Document Report ---
ED Fall - General Chief Complaint: Fall Stated Complaint: FALL,UNCOORDINATED Time Seen by Provider: 03/25/19 22:55 Primary Care Provider: ÁNGEL HOFFMAN MD [NO LOCAL MD] - Follow up as needed Mode of Arrival: Medic Information source: Patient Notes: Patient complains of frequent falls. He is brought here by EMS after tripping many times in the last 2 weeks. He has a history of being uncoordinated but no dizziness or LOC. He denies any injury. Patient was sleeping when I went in the room to examine him. He denies any chest pain or shortness of breath. He has a mild frontal headache. No neck pain. No abdominal pain. No rashes. He has a history of chronic renal insufficiency. Baseline creatinine last year was 1.82 and 1.36. No other complaints. Patient has history of prior remote strokes. Positive dizziness. TRAVEL OUTSIDE OF THE [place] IN LAST 30 DAYS: No - Related data Allergies/Adverse Reactions: Sulfa (Sulfonamide Antibiotics) Allergy (Verified 06/28/18 18:42) Past Medical History - Social History Smoking Status: Former Smoker Chew tobacco use (# tins/day): No Frequency of alcohol use: None Drug Abuse: None Family History: CAD, DM, Other - Renal failure Patient has suicidal ideation: No Patient has homicidal ideation: No - Past Medical History Cardiac Medical History: Reports: Hx Hypercholesterolemia, Hx Hypertension - medicated Denies: Hx Heart Attack Pulmonary Medical History: Denies: Hx Asthma Neurological Medical History: Reports: Hx Cerebrovascular Accident - ABT 1969'[id number]. Denies: Hx Seizures Endocrine Medical History: Reports: Hx Diabetes Mellitus Type 2 Renal/ Medical History: Denies: Hx Peritoneal Dialysis GI Medical History: Denies: Hx Hepatitis, Hx Hiatal Hernia, Hx Ulcer Psychiatric Medical History: Denies: Hx Depression Infectious Medical History: Denies: Hx Hepatitis Past Surgical History: Reports: Hx Appendectomy, Other - Cataracts. Denies: Hx Open Heart Surgery, Hx Pacemaker - Immunizations Hx Pneumococcal Vaccination: 05/06/18 Review of Systems - Review of Systems Constitutional: denies: Chills, Fever -: Yes All other systems reviewed and negative Physical Exam - Vital signs Vitals: Temp Pulse Resp BP Pulse Ox 99.6 F 104 H 18 115/64 92 03/25/19 22:11 03/25/19 22:11 03/25/19 22:11 03/25/19 22:11 03/25/19 22:11 Interpretation: Normal - General General appearance: Appears well, Alert - HEENT Head: Normocephalic, Atraumatic Eyes: Normal Pupils: PERRL Neck: Normal, Supple - Respiratory Respiratory status: No respiratory distress Chest status: Nontender Breath sounds: Normal Chest palpation: Normal - Cardiovascular Rhythm: Regular Heart sounds: Normal auscultation Murmur: No - Abdominal Inspection: Normal Distension: No distension Bowel sounds: Normal Tenderness: Nontender Organomegaly: No organomegaly - Back Back: Normal, Nontender - Extremities General upper extremity: Normal inspection, Nontender, Normal color, Normal ROM, Normal temperature General lower extremity: Normal inspection, Nontender, Normal color, Normal ROM, Normal temperature, Normal weight bearing. No: Adis's sign - Neurological Neuro grossly intact: Yes Cognition: Normal Orientation: AAOx4 [place] Coma Scale Eye Opening: Spontaneous [place] Coma Scale Verbal: Oriented [place] Coma Scale Motor: Obeys Commands [place] Coma Scale Total: 15 Speech: Normal Motor strength normal: LUE, RUE, LLE, RLE Sensory: Normal - Psychological Associated symptoms: Normal affect, Normal mood - Skin Skin Temperature: Warm Skin Moisture: Dry Skin Color: Normal Course - Re-evaluation Re-evalutation: 03/26/19 03:28 EKG per me shows normal sinus rhythm at a rate of 97 with mild artifact. Prolonged QT interval. Left axis deviation. 03/26/19 05:00 I reviewed the lab tests and radiological studies with the patient. Patient will feels better now and will return at once if worse or new symptoms. He will follow-up with his own doctor in the next couple days. - Vital Signs Vital signs: Temp Pulse Resp BP Pulse Ox 99.6 F 104 H 16 96/73 L 98 03/25/19 22:11 03/25/19 22:11 03/26/19 02:01 03/26/19 02:01 03/26/19 02:01 - Laboratory Result Diagrams: 03/25/19 23:35 03/25/19 23:35 Laboratory results interpreted by me: 03/25/19 03/25/19 03/26/19 23:35 23:35 00:10 RBC 4.05 L Hgb 13.0 L Hct 37.5 L RDW 15.0 H Lymph % (Auto) 7.2 L Absolute Neuts (auto) 8.3 H Seg Neutrophils % 83.9 H Sodium 130.3 L Chloride 93 L BUN 43 H Creatinine 2.17 H Est GFR ( Amer) 36 L Est GFR (MDRD) Non-Af 30 L Glucose 115 H Alkaline Phosphatase 152 H Urine Ketones TRACE H - Diagnostic Test Radiology reviewed: Image reviewed, Reports reviewed Discharge - Discharge Clinical Impression: Dizziness Fall Qualifiers: Encounter type: initial encounter Qualified Code(s): W19.XXXA - Unspecified fall, initial encounter Chronic renal insufficiency Qualifiers: Chronic kidney disease stage: unspecified stage Qualified Code(s): N18.9 - Chronic kidney disease, unspecified Condition: Stable Disposition: HOME, SELF-CARE Instructions: Weakness (OM) Additional Instructions: Return at once if worse or new symptoms. See your doctor for recheck in the next couple days. Referrals: ÁNGEL HOFFMAN MD [NO LOCAL MD] - Follow up as needed
--- NOTE | 2019-03-26 04:33 | RADIOLOGY REPORT (SQ) ---
EXAM: CT head without IV contrast CLINICAL DATA: HEADACHE TECHNICAL DATA: Multiple axial CT images of the brain were performed followed by sagittal and coronal reconstructed images. The CT study is performed according to ALARA (as low as reasonably achievable) or ALARA/IMAGE GENTLY, with automatic adjustment of mA and/or kV according to patient size. Performed on: 03/26/2019 03:19 Comparisons: 06/28/2018. FINDINGS: There is no evidence of mass, acute mass effect or midline shift. There are no acute extra-axial fluid collections. There is no evidence of acute intracranial hemorrhage. The cerebral sulci and ventricles are normal in size and configuration. There are no focal abnormal areas of increased or decreased attenuation. As noted previously, there are old [place] droplets in the region of the suprasellar cistern from remote prior myelogram. There is mild mucosal thickening of the paranasal sinuses. There is chronic opacification of the right mastoid air cells. The orbital contents are grossly unremarkable. No acute osseous abnormalities are identified. No focal soft tissue abnormalities are identified. IMPRESSION: 1. There is no evidence of acute intracranial pathology. 2. Chronic opacification of the right mastoid air cells.
--- NOTE | 2019-03-26 09:07 | EKG REPORT ---
SEVERITY:- ABNORMAL ECG - SINUS RHYTHM WITH FIRST DEGREE AVB LAD, CONSIDER LAFB OR INFERIOR INFARCT CONSIDER ANTERIOR INFARCT TX INTERVAL 207MS : Confirmed by: Felton Felton MD 26-Mar-2019 09:06:31
[2019-03-26 09:19] VITALS: BP 110/76
== END 2019-03-26 09:19 | disposition home or self-care (01) ==
LOC: ER 22:07
DX: R42 Dizziness and giddiness (principal); N18.9 Chronic kidney disease, unspecified; R51 Headache; W19.XXXA Unspecified fall, initial encounter; Z91.81 History of falling; Z86.73 Personal history of transient ischemic attack (TIA), and cerebral infarction without residual deficits; Z87.891 Personal history of nicotine dependence
CPT/HCPCS: 36415; 70450; 80053; 81001; 83735; 84484; 85025; 93005; 93010; 99285